=== PATIENT | female | born 1965 | race Two or more races ===

== ENCOUNTER 2020-02-27 07:59 | Inpatient (IN) | payer MEDICAID ==
[2020-02-22 10:27] LABS: Basophils # (auto) 0.1 10 ^3/uL (0-0.2); Basophils % (auto) 0.9 % (0.0-2.0); Eosinophils # (auto) 0.1 10 ^3/uL (0-0.8); Eosinophils % (auto) 1.4 % (0.0-7.0); Hematocrit 43.5 % (36.0-46.0); Hemoglobin 14.5 g/dL (12.2-16.2); Lymphocytes # (auto) 1.8 10 ^3/uL (0.4-5.4); Lymphocytes % (auto) 23.8 % (10.0-50.0); Mean Corpuscular Hemoglobin 30.5 pg (28.0-32.0); Mean Corpuscular Hgb Conc. 33.5 g/dL (32.0-36.0); Mean Corpuscular Volume 91.1 fL (80.0-100.0); Monocytes # (auto) 0.5 10 ^3/uL (0-1.3); Monocytes % (auto) 7.3 % (0.0-12.0); Neutrophils % (auto) 66.6 % (37.0-80.0); Nucleated Red Blood Cells % 0.1 %; Platelet Count (auto) 211 10^3/uL (140-450); Red Blood Cells 4.77 10^6/uL (4.0-5.20); Red Cell Distribution Width 12.8 % (11.8-14.3); White Blood Cell 7.5 10^3/uL (4.4-10.8)
[2020-02-22 10:39] LABS: Urine Bacteria NONE SEEN /hpf (None Seen); Urine Blood Negative /uL (Negative); Urine Specific Gravity 1.004 (1.001-1.035); Urine WBC <1 /hpf (0 - 5)
[2020-02-22 10:53] LABS: INR 0.99 (0.9-1.15); Partial Thromboplastin Time 27.6 sec (23.0-31.2)
[2020-02-22 11:47] LABS: Potassium 4.4 mmol/L (3.5-5.1)
[2020-02-22 11:57] LABS: Albumin 4.1 g/dL (3.4-5.0); BUN/Creatinine Ratio 10.6; Bilirubin, Total 0.6 mg/dL (0.2-1.0); Calcium 9.8 mg/dL (8.5-10.1)
[2020-02-22 12:20] LABS: Total Protein 8.3 g/dL (6.4-8.2)
[~2020-02-27] VITALS: Ht 147.3 cm; Wt 76.0 kg
[~2020-02-27 07:59] MED LIST: AMLO10TA13 PO; ERGO1CAP12 PO; TOPI25CA5 PO
[2020-02-27] MEDS ORDERED: MEPERIDINE HCL (25 MG/ML) 1ML VIAL ONE (08:44)
[2020-02-27] MEDS ORDERED: GLYCOPYRROLATE 0.2 MG/ML 1ML VIAL ONE (08:44)
[2020-02-27] MEDS ORDERED: PROPOFOL 10 MG/ML 20 ML IV ONE (08:44)
[2020-02-27] MEDS ORDERED: ONDANSETRON HCL 4 MG/2 ML VIAL ONE (08:44)
[2020-02-27] MEDS ORDERED: fentaNYL CITRATE 100 MCG/2 ML VL ONE (08:44)
[2020-02-27] MEDS ORDERED: MIDAZOLAM HCL 1MG/1ML-2 ML VIAL ONE (08:44)
[2020-02-27] MEDS ORDERED: ROCURONIUM 10MG/ML 10ML VIAL IV ONE (08:44)
[2020-02-27] MEDS ORDERED: NEOSTIGMINE 1 MG/ML INJ (10mg/10ML VIAL) ONE (08:44)
[2020-02-27] MEDS ORDERED: SODIUM CHLORIDE LOCK 10 ML ONE (08:44)
[2020-02-27] MEDS ORDERED: ceFAZolin 1GM/50ML 50 ML IV ONE (10:31)
[2020-02-27] MEDS ORDERED: SUCCINYLCHOLINE CHLORIDE 20 MG/ML 10ML VIAL IV ONE (11:29)
[2020-02-27] MEDS ORDERED: METOCLOPRAMIDE HCL 5MG/ml INJ 2ml VIAL IV PRN (11:45)
[2020-02-27] MEDS ORDERED: HYDROmorphone HCL 2 MG/ML VL IV PRN ×2 (11:45→12:30)
[2020-02-27] MEDS ORDERED: MORPHINE SULFATE 4 MG/ML SYR/VIAL IV PRN (11:45)
[2020-02-27] MEDS ORDERED: fentaNYL CITRATE 100 MCG/2 ML VL IV PRN (11:45)
[2020-02-27] MEDS ORDERED: KETOROLAC TROMETH 30 MG/ML 1ML VIAL IV ONE (11:45)
[2020-02-27] MEDS ORDERED: KETOROLAC TROMETH 60MG/2ML VIAL ONE (12:11)
[2020-02-27] MEDS ORDERED: ONDANSETRON HCL 4 MG/2 ML VIAL IV PRN (12:30)
[2020-02-27] MEDS ORDERED: MORPHINE SULF INJ 2 MG/ML SYRINGE 1ML IV PRN (14:15)
[2020-02-27] MEDS ORDERED: NITROGLYCERIN 0.4 MG SL TAB SL PRN (14:15)
--- NOTE | 2020-02-27 14:30 | NUR ---
MS admit from [facility] admitted to [facility] after SBAR received. Patient oriented to Makenzie Villasenor, primary RN, unit, room, bed, and unit policies regarding patient care and visiting hours. Patient weighed by bedscale and encouraged to call if they need something. Patient is awake, alert and oriented X4. No S/S of distress, SOB, complains of abdominal pain, 6/10. IV to right wrist, 20 gauge, patent and infusing 0.9% NS @ 75 ml/hr. Medial abdominal incisionsX2 and right lower abdominal incision, all with dressings in place, small amount of Betadine on dressings, abdominal binder in place. All questions and concerns addressed, patient verbalized understanding. Bilateral SCD's in place. Bed locked, in lowest position, call light within reach, will continue to monitor Q1 hour and PRN.
[2020-02-27 14:31] VITALS: BP 98/59
[2020-02-27 14:35] VITALS: BP 98/59
[2020-02-27] MEDS: ceFAZolin 1GM/50ML 50 ML IV SCH ×2 (14:47→21:43)
[2020-02-27] MEDS: SODIUM CHLORIDE 0.9% 1,000 ML IV SCH (15:45)
--- NOTE | 2020-02-27 15:45 | NUR ---
ROUNDS Dr Reynolds at bedside for rounds, new orders received and followed through. Patient updated on plan of care, verbalized understanding.
[2020-02-27] MEDS: HYDROmorphone HCL 2 MG/ML VL IV PRN ×3 (16:31→23:02)
[2020-02-27 17:00] VITALS: BP 113/64
--- NOTE | 2020-02-27 19:03 | NUR ---
Care endorsed to DION Arellano, night nurse.
--- NOTE | 2020-02-27 19:47 | NUR ---
1899. REPORT OBTAINED ON PATIENT FROM [facility]. DION. 1914. PATIENT SEEN. AWAKE AND ALERT. COMPLAINED OF ABDOMINAL PAIN /. NO NAUSEA. NO VOMITING. NO PALLOR. AFEBRILE. BREATHING IS EVEN AND UNLABORED. WILL FOLLOW UP WITH PAIN MEDICATION.
--- NOTE | 2020-02-27 19:51 | NUR ---
1941. MEDICATED FOR PAIN.
[2020-02-27] MEDS: HYDROcodone-ACET 5/325MG TAB PO PRN (21:56)
[2020-02-27 22:27] VITALS: BP 117/68
[2020-02-28] MEDS: HYDROmorphone HCL 2 MG/ML VL IV PRN ×2 (02:20→06:00)
--- NOTE | 2020-02-28 02:21 | NUR ---
0220. MEDICATED FOR PAIN.
--- NOTE | 2020-02-28 03:51 | NUR ---
0330. PATIENT ASSISTED OUT OF BED. ASSISTED TO THE BATHROOM. VOIDED. RETURNED TO CHAIR. SAT FOR 10 MINUTES. MEDICATED WITH ZOFRAN FOR NAUSEA DURING THE INTERVAL. ENCOURAGED TO DO DEEP BREATHING X 5 BEFORE EACH ACTIVITY. BED LINENS CHAGED. PATIENT ASSISTED TO BED. TOLERATED THE ACTIVITIES. REASTING WELL NOW. PAIN LEVEL 4/10. TOLERABLE.
[2020-02-28] MEDS: SODIUM CHLORIDE 0.9% 1,000 ML IV SCH (04:35)
[2020-02-28 05:31] VITALS: BP 121/73
[2020-02-28] MEDS: ceFAZolin 1GM/50ML 50 ML IV SCH ×2 (05:31→14:00)
[2020-02-28 06:57] LABS: Basophils # (auto) 0 10 ^3/uL (0-0.2); Eosinophils # (auto) 0 10 ^3/uL (0-0.8); Lymphocytes # (auto) 0.9 10 ^3/uL (0.4-5.4); Lymphocytes % (auto) 4.8 % (10.0-50.0); Mean Corpuscular Hemoglobin 30.5 pg (28.0-32.0); Mean Corpuscular Hgb Conc. 33.3 g/dL (32.0-36.0); Mean Corpuscular Volume 91.5 fL (80.0-100.0); Monocytes # (auto) 1.2 10 ^3/uL (0-1.3); Neutrophils # (auto) 17.2 10 ^3/uL (1.6-8.6); Neutrophils % (auto) 89.2 % (37.0-80.0); Nucleated Red Blood Cells % 0.1 %; Platelet Count (auto) 192 10^3/uL (140-450); Red Blood Cells 4.27 10^6/uL (4.0-5.20); White Blood Cell 19.3 10^3/uL (4.4-10.8)
--- NOTE | 2020-02-28 07:22 | NUR ---
0700. PATIENT ENDORSED TO JULIE. ASHLEY.
[2020-02-28 07:29] LABS: Potassium 3.7 mmol/L (3.5-5.1)
[2020-02-28 07:52] LABS: Albumin 3.4 g/dL (3.4-5.0); BUN/Creatinine Ratio 11.4; Bilirubin, Total 0.7 mg/dL (0.2-1.0); Total Protein 7.3 g/dL (6.4-8.2)
--- NOTE | 2020-02-28 08:00 | NUR ---
Opening Shift Note Assumed care of patient, awake, alert and oriented X4. No S/S of distress, SOB, complains of abdominal pain, 6/10. IV to right wrist, 20 gauge, patent and infusing 0.9% NS @ 75 ml/hr. Medial abdominal incisions X2 and right lower abdominal incision X1, all with dressings in place, small amount of Betadine on dressings, abdominal binder in place. All questions and concerns addressed, patient verbalized understanding. Bed locked, in lowest position, call light within reach, will continue to monitor Q1 hour and PRN.
[2020-02-28 09:00] VITALS: BP 128/77
[2020-02-28] MEDS ORDERED: PANTOPRAZOLE 40 MG/10 ML VIAL INJ IV SCH (10:00)
--- NOTE | 2020-02-28 10:00 | NUR ---
ROUNDS Dr Reynolds at bedside for rounds, new orders received and followed through. Patient updated on plan of care, verbalized understanding.
[2020-02-28] MEDS: HYDROcodone-ACET 5/325MG TAB PO PRN (11:10)
[2020-02-28 13:00] VITALS: BP 118/73
[2020-02-28 16:30] VITALS: BP 136/78
--- NOTE | 2020-02-28 17:18 | NUR ---
Discharge instructions given as ordered. Encourage to follow up with PMD as instructed. All questions and concerns addressed. Patient verbalized understanding. Medication reconciliation form completed and copy given to patient. Patient awaiting transportation and needs IV removed.
--- NOTE | 2020-02-28 19:13 | NUR ---
Care endorsed to DION Christianson, night. Informed IV to right wrist needs to be removed prior to patient leaving, verbalized understanding.
--- NOTE | 2020-02-28 20:00 | NUR ---
Pt. IV access @ the Right wrist removed/discontinued. Keep it aseptic and covered with gauze 2x2 and taped. Pt. given new, clean Abdominal binder medium size for pt. to take home. Pt. is ready to go home with Daughter Elizabeth waiting downstair @ the First Floor.
--- NOTE | 2020-02-28 20:07 | NUR ---
Pt. discharged home by wheelchair accompanied by CHAU Harrison to take down stairs first [address] floor to meet with Daughter Elizabeth. Pt. taken with her personal belongings and discharge home stable with Daughter Elizabeth @ [address]
== END 2020-02-28 20:07 | disposition home or self-care (01) | DRG 263 ==
LOC: SUR 07:59 → CENTRAL 14:23
PROVIDERS: ADMIT Surgery; ATTEND Internal Medicine
PROC: 3E013GC Introduction of Other Therapeutic Substance into Subcutaneous Tissue, Percutaneous Approach (ICD-10-PCS; 2020-02-27)
PROC: 0FT44ZZ Resection of Gallbladder, Percutaneous Endoscopic Approach (ICD-10-PCS; principal; 2020-02-27 11:39)
DX: K80.10 Calculus of gallbladder with chronic cholecystitis without obstruction (principal); E66.9 Obesity, unspecified; F32.9 Major depressive disorder, single episode, unspecified; G43.909 Migraine, unspecified, not intractable, without status migrainosus; I10 Essential (primary) hypertension; Z20.828 Contact with and (suspected) exposure to other viral communicable diseases; Z68.35 Body mass index [BMI] 35.0-35.9, adult; Z91.040 Latex allergy status
CPT/HCPCS: 36415; 80053; 81001; 85025; 85610; 85730; C9113; G0378; J0330; J0690; J1885; J2250; J2405; J2704

== ENCOUNTER 2021-04-01 12:42 | Day surgery (SDC) | payer MEDICAID ==
[2021-03-27 12:50] LABS: Basophils # (auto) 0.1 10 ^3/uL (0-0.2); Basophils % (auto) 0.8 % (0.0-2.0); Eosinophils # (auto) 0.2 10 ^3/uL (0-0.8); Eosinophils % (auto) 2.4 % (0.0-7.0); Hematocrit 43.2 % (36.0-46.0); Hemoglobin 14.3 g/dL (12.2-16.2); Lymphocytes % (auto) 24.5 % (10.0-50.0); Mean Corpuscular Hemoglobin 29.5 pg (28.0-32.0); Mean Corpuscular Hgb Conc. 33.1 g/dL (32.0-36.0); Mean Corpuscular Volume 89.3 fL (80.0-100.0); Monocytes # (auto) 0.5 10 ^3/uL (0-1.3); Monocytes % (auto) 6.8 % (0.0-12.0); Neutrophils # (auto) 5.2 10 ^3/uL (1.6-8.6); Neutrophils % (auto) 65.5 % (37.0-80.0); Nucleated Red Blood Cells % 0.1 %; Red Blood Cells 4.84 10^6/uL (4.0-5.20)
[2021-03-27 13:21] LABS: Albumin 4.1 g/dL (3.4-5.0); Calcium 9.6 mg/dL (8.5-10.1); Potassium 4.1 mmol/L (3.5-5.1)
[2021-03-27 13:25] LABS: BUN/Creatinine Ratio 14.9; Bilirubin, Total 0.8 mg/dL (0.2-1.0); Total Protein 8.5 g/dL (6.4-8.2)
[~2021-04-01] VITALS: Ht 149.9 cm; Wt 65.8 kg
[~2021-04-01 12:42] MED LIST changes: -AMLO10TA13 PO; +ATOR20TA PO; +MAGN400T40 PO; +VITA1TAB8 PO
[2021-04-01] MEDS ORDERED: diphenhdrAMINE HCL 50 MG/1 ML VL ONE (15:52)
[2021-04-01] MEDS ORDERED: LIDOCAINE VISCOUS 2% 15ML UD ONE (15:52)
[2021-04-01] MEDS ORDERED: SODIUM CHLORIDE LOCK 10 ML ONE (15:53)
[2021-04-01] MEDS: MIDAZOLAM HCL 5 MG/ML-1ML VIAL ONE ×3 (16:36→16:41)
[2021-04-01] MEDS: fentaNYL CITRATE 100 MCG/2 ML VL ONE ×2 (16:36→16:39)
[2021-04-01 17:20] VITALS: BP 127/67
== END 2021-04-01 17:45 | disposition home or self-care (01) ==
LOC: GI 12:42
PROVIDERS: ATTEND Internal Medicine Gastroenterology
DX: R10.11 Right upper quadrant pain (principal); K31.7 Polyp of stomach and duodenum; K29.50 Unspecified chronic gastritis without bleeding; K31.89 Other diseases of stomach and duodenum; K21.9 Gastro-esophageal reflux disease without esophagitis; K29.90 Gastroduodenitis, unspecified, without bleeding; K44.9 Diaphragmatic hernia without obstruction or gangrene; F41.9 Anxiety disorder, unspecified; F31.9 Bipolar disorder, unspecified; I10 Essential (primary) hypertension; G43.909 Migraine, unspecified, not intractable, without status migrainosus; Z90.710 Acquired absence of both cervix and uterus; Z98.890 Other specified postprocedural states; Z79.899 Other long term (current) drug therapy; Z20.822 Contact with and (suspected) exposure to COVID-19
CPT/HCPCS: 36415; 43239; 80053; 85025; 88305; 88342; J1200; J2250; J3010; J7030; U0003; 99152

== ENCOUNTER → 2021-05-22 | Day surgery (SDC) | payer MEDICAID ==
[2021-05-19 10:37] LABS: Basophils # (auto) 0.1 10 ^3/uL (0-0.2); Basophils % (auto) 0.8 % (0.0-2.0); Eosinophils # (auto) 0.2 10 ^3/uL (0-0.8); Eosinophils % (auto) 2.6 % (0.0-7.0); Hematocrit 42.1 % (36.0-46.0); Lymphocytes # (auto) 2.2 10 ^3/uL (0.4-5.4); Lymphocytes % (auto) 33.7 % (10.0-50.0); Mean Corpuscular Hemoglobin 29.9 pg (28.0-32.0); Mean Corpuscular Hgb Conc. 33.3 g/dL (32.0-36.0); Mean Corpuscular Volume 89.7 fL (80.0-100.0); Monocytes # (auto) 0.5 10 ^3/uL (0-1.3); Monocytes % (auto) 7.2 % (0.0-12.0); Neutrophils # (auto) 3.7 10 ^3/uL (1.6-8.6); Neutrophils % (auto) 55.7 % (37.0-80.0); Nucleated Red Blood Cells % 0.1 %; Red Blood Cells 4.69 10^6/uL (4.0-5.20); Red Cell Distribution Width 13.2 % (11.8-14.3); White Blood Cell 6.7 10^3/uL (4.4-10.8)
[2021-05-19 11:36] LABS: Potassium 4.2 mmol/L (3.5-5.1)
[2021-05-19 11:55] LABS: Albumin 3.9 g/dL (3.4-5.0); BUN/Creatinine Ratio 16.4; Bilirubin, Total 0.8 mg/dL (0.2-1.0); Calcium 9.3 mg/dL (8.5-10.1); Total Protein 7.8 g/dL (6.4-8.2)
[~2021-05-22] VITALS: Ht 147.3 cm; Wt 65.8 kg
[~2021-05-22] MED LIST changes: +PANT40TA2 PO
[2021-05-22] MEDS: MIDAZOLAM HCL 5 MG/ML-1ML VIAL ONE ×3 (14:21→14:28)
[2021-05-22] MEDS: diphenhdrAMINE HCL 50 MG/1 ML VL ONE ×2 (14:21→14:24)
[2021-05-22] MEDS: fentaNYL CITRATE 100 MCG/2 ML VL ONE ×2 (14:21→14:24)
[2021-05-22 15:30] VITALS: BP 113/56
== END | disposition home or self-care (01) ==
LOC: GI 12:29
PROVIDERS: ATTEND Internal Medicine Gastroenterology
DX: K59.00 Constipation, unspecified (principal); K51.90 Ulcerative colitis, unspecified, without complications; K52.9 Noninfective gastroenteritis and colitis, unspecified; K64.8 Other hemorrhoids; F41.9 Anxiety disorder, unspecified; F31.9 Bipolar disorder, unspecified; I10 Essential (primary) hypertension; E78.5 Hyperlipidemia, unspecified; Z98.890 Other specified postprocedural states; Z86.010 Personal history of colon polyps; Z90.710 Acquired absence of both cervix and uterus; Z79.899 Other long term (current) drug therapy; Z98.51 Tubal ligation status; Z91.040 Latex allergy status; Z88.5 Allergy status to narcotic agent; Z20.822 Contact with and (suspected) exposure to COVID-19
CPT/HCPCS: 36415; 45380; 80053; 85025; J1200; J2250; J3010; J7030; U0003; 99152

== ENCOUNTER → 2021-09-23 | Day surgery (SDC) | payer MEDICAID ==
[2021-09-22 13:46] LABS: Basophils # (auto) 0.1 10 ^3/uL (0-0.2); Basophils % (auto) 1.4 % (0.0-2.0); Eosinophils # (auto) 0.2 10 ^3/uL (0-0.8); Eosinophils % (auto) 2.3 % (0.0-7.0); Hematocrit 40.6 % (36.0-46.0); Hemoglobin 13.8 g/dL (12.2-16.2); Lymphocytes # (auto) 1.9 10 ^3/uL (0.4-5.4); Lymphocytes % (auto) 25.8 % (10.0-50.0); Mean Corpuscular Hemoglobin 30.1 pg (28.0-32.0); Mean Corpuscular Hgb Conc. 34.1 g/dL (32.0-36.0); Mean Corpuscular Volume 88.4 fL (80.0-100.0); Monocytes # (auto) 0.4 10 ^3/uL (0-1.3); Monocytes % (auto) 5.9 % (0.0-12.0); Neutrophils # (auto) 4.7 10 ^3/uL (1.6-8.6); Neutrophils % (auto) 64.6 % (37.0-80.0); Nucleated Red Blood Cells % 0.2 %; Red Cell Distribution Width 13.1 % (11.8-14.3); White Blood Cell 7.3 10^3/uL (4.4-10.8)
[2021-09-22 14:03] LABS: Albumin 3.9 g/dL (3.4-5.0); BUN/Creatinine Ratio 16.9; Calcium 9.9 mg/dL (8.5-10.1); INR 1.1 (0.9-1.15); Partial Thromboplastin Time 28.7 sec (23.6-33.0); Potassium 3.4 mmol/L (3.5-5.1)
[2021-09-22 14:05] LABS: Bilirubin, Total 0.5 mg/dL (0.2-1.0); Total Protein 7.7 g/dL (6.4-8.2)
[2021-09-22 14:38] LABS: Urine Bacteria NONE SEEN /hpf (None Seen); Urine Blood TRACE /uL (Negative); Urine Mucus FEW (None Seen); Urine Specific Gravity 1.019 (1.001-1.035); Urine WBC <1 /hpf (0 - 5)
[~2021-09-23] VITALS: Ht 147.3 cm; Wt 65.8 kg
[~2021-09-23] MED LIST changes: +BUPIVACAINE W/ EPINEPH 0.25% INJ 50ML MDV ONE; +CEPH-509 PO; +GLYCOPYRROLATE 0.2 MG/ML 1ML VIAL ONE; +HYDROmorphone HCL 2 MG/ML VL ONE; +LABETALOL HCL 5 MG/ML 4ML SYRINGE IV PRN; +LIDOCAINE 1% HCL (LOCAL ANESTH.) INJ 20ML MDV ONE; +MEPERIDINE HCL (25 MG/ML) 1ML VIAL ONE; +METOCLOPRAMIDE HCL 5MG/ml INJ 2ml VIAL IV PRN; +MIDAZOLAM HCL 2MG/2ML 2ml VIAL (1mg/ml) IV PRN; +MIDAZOLAM HCL 2MG/2ML 2ml VIAL (1mg/ml) ONE; +MORPHINE SULFATE 4 MG/ML SYR/VIAL IV PRN; +NEOSTIGMINE 1 MG/ML INJ (10mg/10ML VIAL) ONE; +ONDANSETRON HCL 4 MG/2 ML VIAL IV PRN; +ONDANSETRON HCL 4 MG/2 ML VIAL ONE; +PROPOFOL 10 MG/ML 20 ML IV ONE; +ROCURONIUM 10MG/ML 10ML VIAL IV ONE; +SODIUM CHLORIDE LOCK 10 ML ONE; -TOPI25CA5 PO; +ceFAZolin 1GM/50ML 50 ML IV ONE; +ePHEDrine SULFATE 50 MG/ML AMP IV PRN; +fentaNYL CITRATE 100 MCG/2 ML VL ONE
[2021-09-23] MEDS: HYDROmorphone HCL 2 MG/ML VL IV PRN ×4 (14:40→15:11)
[2021-09-23 17:00] VITALS: BP 118/62
== END | disposition home or self-care (01) ==
LOC: SUR 06:46
PROVIDERS: ATTEND Surgery
DX: K43.9 Ventral hernia without obstruction or gangrene (principal); F41.9 Anxiety disorder, unspecified; F31.9 Bipolar disorder, unspecified; I10 Essential (primary) hypertension; E78.5 Hyperlipidemia, unspecified; K21.9 Gastro-esophageal reflux disease without esophagitis; Z91.040 Latex allergy status; Z90.710 Acquired absence of both cervix and uterus; Z88.5 Allergy status to narcotic agent; Z20.822 Contact with and (suspected) exposure to COVID-19
CPT/HCPCS: 36415; 49560; 80053; 81001; 85025; 85610; 85730; 86850; 86900; 86901; C1781; J0690; J1170; J2001; J2175; J2250; J2405; J2704; J2765; J3010; U0003

== ENCOUNTER → 2022-07-22 | Outpatient (CLI) | payer MEDICAID ==
[~2022-07-22] MED LIST changes: -BUPIVACAINE W/ EPINEPH 0.25% INJ 50ML MDV ONE; -GLYCOPYRROLATE 0.2 MG/ML 1ML VIAL ONE; -HYDROmorphone HCL 2 MG/ML VL ONE; -LABETALOL HCL 5 MG/ML 4ML SYRINGE IV PRN; -LIDOCAINE 1% HCL (LOCAL ANESTH.) INJ 20ML MDV ONE; -MEPERIDINE HCL (25 MG/ML) 1ML VIAL ONE; -METOCLOPRAMIDE HCL 5MG/ml INJ 2ml VIAL IV PRN; -MIDAZOLAM HCL 2MG/2ML 2ml VIAL (1mg/ml) IV PRN; -MIDAZOLAM HCL 2MG/2ML 2ml VIAL (1mg/ml) ONE; -MORPHINE SULFATE 4 MG/ML SYR/VIAL IV PRN; -NEOSTIGMINE 1 MG/ML INJ (10mg/10ML VIAL) ONE; -ONDANSETRON HCL 4 MG/2 ML VIAL IV PRN; -ONDANSETRON HCL 4 MG/2 ML VIAL ONE; -PROPOFOL 10 MG/ML 20 ML IV ONE; -ROCURONIUM 10MG/ML 10ML VIAL IV ONE; -SODIUM CHLORIDE LOCK 10 ML ONE; -ceFAZolin 1GM/50ML 50 ML IV ONE; -ePHEDrine SULFATE 50 MG/ML AMP IV PRN; -fentaNYL CITRATE 100 MCG/2 ML VL ONE
[2022-07-22 09:37] LABS: Albumin 4.1 g/dL (3.4-5.0); Calcium 9.7 mg/dL (8.5-10.1); Potassium 4.1 mmol/L (3.5-5.1)
[2022-07-22 09:43] LABS: BUN/Creatinine Ratio 10.9; Bilirubin, Total 1.1 mg/dL (0.2-1.0); Total Protein 8.2 g/dL (6.4-8.2)
[2022-07-22 09:46] LABS: Hepatitis B Surface Antibody Negative (Negative)
[2022-07-22 10:24] LABS: Hepatitis A Total Antibody Positive (Negative)
[2022-07-22 14:07] LABS: Hepatitis C Antibody Negative (Negative)
== END | disposition home or self-care (01) ==
LOC: LAB 08:43
PROVIDERS: ATTEND Internal Medicine Gastroenterology
DX: R94.5 Abnormal results of liver function studies (principal); R10.11 Right upper quadrant pain
CPT/HCPCS: 36415; 80053; 80061; 83036; 86038; 86704; 86706; 86708; 86803; 87340

== ENCOUNTER → 2022-08-16 | Outpatient (CLI) | payer MEDICAID ==
[2022-08-16 08:42] LABS: Basophils # (auto) 0.1 10 ^3/uL (0-0.2); Basophils % (auto) 1.1 % (0.0-2.0); Eosinophils # (auto) 0.2 10 ^3/uL (0-0.8); Eosinophils % (auto) 3.1 % (0.0-7.0); Hematocrit 40.9 % (36.0-46.0); Hemoglobin 13.6 g/dL (12.2-16.2); Lymphocytes # (auto) 1.9 10 ^3/uL (0.4-5.4); Lymphocytes % (auto) 28.8 % (10.0-50.0); Mean Corpuscular Hemoglobin 30.6 pg (28.0-32.0); Mean Corpuscular Hgb Conc. 33.2 g/dL (32.0-36.0); Mean Corpuscular Volume 92.4 fL (80.0-100.0); Monocytes # (auto) 0.6 10 ^3/uL (0-1.3); Monocytes % (auto) 8.7 % (0.0-12.0); Neutrophils # (auto) 3.8 10 ^3/uL (1.6-8.6); Neutrophils % (auto) 58.3 % (37.0-80.0); Nucleated Red Blood Cells % 0.1 %; Red Blood Cells 4.42 10^6/uL (4.0-5.20); White Blood Cell 6.5 10^3/uL (4.4-10.8)
[2022-08-16 09:10] LABS: Albumin 3.8 g/dL (3.4-5.0); Calcium 9.6 mg/dL (8.5-10.1); Potassium 3.7 mmol/L (3.5-5.1)
[2022-08-16 09:14] LABS: BUN/Creatinine Ratio 12.2; Bilirubin, Total 1.2 mg/dL (0.2-1.0); Total Protein 8.6 g/dL (6.4-8.2)
[2022-08-17 15:07] LABS: Hepatitis A Ab IgM Negative
[2022-08-17 15:08] LABS: Hepatitis B Core IgM Negative; Hepatitis C Antibody Negative (Negative)
== END | disposition home or self-care (01) ==
LOC: LAB 08:22
PROVIDERS: ATTEND Internal Medicine Gastroenterology
DX: R94.5 Abnormal results of liver function studies (principal)
CPT/HCPCS: 36415; 80053; 80061; 80074; 82728; 85025; 86038

== ENCOUNTER → 2022-09-22 | Outpatient (CLI) | payer MEDICAID ==
[2022-09-22 11:11] LABS: INR 1.03 (0.9-1.15)
[2022-09-22 11:40] LABS: Albumin 3.7 g/dL (3.4-5.0); Calcium 9.2 mg/dL (8.5-10.1); Potassium 3.5 mmol/L (3.5-5.1)
[2022-09-22 11:45] LABS: BUN/Creatinine Ratio 9.7; Bilirubin, Total 0.5 mg/dL (0.2-1.0); Total Protein 8.1 g/dL (6.4-8.2)
== END | disposition home or self-care (01) ==
LOC: LAB 10:28
PROVIDERS: ATTEND Internal Medicine Gastroenterology
DX: R94.5 Abnormal results of liver function studies (principal)
CPT/HCPCS: 36415; 80053; 80061; 82728; 85610

== ENCOUNTER 2023-02-01 18:46 | Emergency (ER) | payer MEDICAID ==
[~2023-02-01] VITALS: Ht 149.9 cm; Wt 58.5 kg
[2023-02-02] MEDS ORDERED: TRAM50TA2 PO ×2 (03:04)
[2023-02-02] MEDS ORDERED: HYDROcodone-ACET 5/325MG TAB PO ONE (03:15)
[2023-02-02] MEDS ORDERED: ONDANSETRON ODT 4 MG TAB PO ONE (03:15)
[2023-02-02 03:31] VITALS: BP 156/84; TEMP 98
[2023-02-02] MEDS ORDERED: ACE3T PO (03:31)
[2023-02-02 03:36] VITALS: PULSE 59; RESP 18; O2SAT 99
== END 2023-02-02 03:44 | disposition home or self-care (01) ==
LOC: ER 18:46
DX: S00.03XA Contusion of scalp, initial encounter (principal); I10 Essential (primary) hypertension; E78.5 Hyperlipidemia, unspecified; K21.9 Gastro-esophageal reflux disease without esophagitis; G43.909 Migraine, unspecified, not intractable, without status migrainosus; Z90.49 Acquired absence of other specified parts of digestive tract; Z90.710 Acquired absence of both cervix and uterus; W22.8XXA Striking against or struck by other objects, initial encounter; Y93.89 Activity, other specified; Y92.89 Other specified places as the place of occurrence of the external cause; Y99.8 Other external cause status
CPT/HCPCS: 70450; 99284; Q0162